=== PATIENT | female | born 1970 | race Caucasian/White ===

== ENCOUNTER 2016-09-19 09:10 | Emergency (ER) | payer BC ==
[~2016-09-19] VITALS: Ht 170.2 cm; Wt 77.3 kg
[2016-09-19 09:22] VITALS: Ht 170.2 cm; Wt 77.3 kg
[2016-09-19] MEDS ORDERED: OXYMETAZOLINE 0.05% 15 ML NAS SPRAY NASAL STA (09:26)
[2016-09-19] MEDS ORDERED: SOD CHLORIDE 0.9% 1,000 ML IV STA ×2 (09:26→10:22)
[2016-09-19] MEDS ORDERED: KETOROLAC 15 MG INJ IV STA (10:01)
[2016-09-19 10:04] LABS: BASOPHILS % 0.2 % (0.0-2.0); EOSINOPHILS # 0.1 10^3/ul (0.0-0.5); EOSINOPHILS % 1.8 % (0.0-7.0); HEMATOCRIT 42.4 % (37.0-47.0); HEMOGLOBIN 14.3 g/dl (12.0-16.0); LYMPHOCYTES # 0.7 10^3/ul (0.8-2.9); LYMPHOCYTES % 13.1 % (15.0-51.0); MEAN CORPUSCULAR HEMOGLOBIN 28.2 pg (29.0-33.0); MEAN CORPUSCULAR HGB CONC 33.7 g/dl (32.0-37.0); MEAN CORPUSCULAR VOLUME 83.7 fl (82.0-101.0); MONOCYTE # 0.3 10^3/ul (0.3-0.9); MONOCYTES % 5.5 % (0.0-11.0); NEUTROPHIL # 4.2 10^3/ul (1.6-7.5); NEUTROPHILS % 79.4 % (39.0-77.0); PLATELET COUNT 190 10^3/UL (140-440); RED BLOOD COUNT 5.07 10^6/ul (4.20-5.40); RED CELL DISTRIBUTION WIDTH 13.1 % (11.5-14.5); UNCORRECTED WBC 5.3 10^3/ul (4.8-10.8); WHITE BLOOD COUNT 5.3 10^3/ul (4.8-10.8)
[2016-09-19 10:11] LABS: CHLORIDE 105 mmol/L (97-110); CONDITION 1; POTASSIUM 4.3 mmol/L (3.5-5.1); SODIUM 144 mmol/L (135-144)
--- NOTE | 2016-09-19 10:11 | RADRPT ---
PROCEDURE: XR Chest. CLINICAL INDICATION: Chest pain TECHNIQUE: Single portable view of the chest was obtained COMPARISON: None FINDINGS: The heart and mediastinum are within normal limits. There is mild elevation of the right diaphragm. There are mild bibasilar atelectatic changes. The lungs are otherwise clear. There is no pleural effusion or pneumothorax. RPTAT: AA IMPRESSION: Mild bibasilar atelectatic changes. .Naveen Denton MD, MD Date Time Electronically viewed and signed by .Naveen Denton MD, on 09/19/2016 10:11 .S/
[2016-09-19 10:12] LABS: INR 0.92; PROTIME 12.4 Sec (12.2-14.2)
[2016-09-19 10:13] LABS: PARTIAL THROMBOPLASTIN TIME 29.7 Sec (25.0-35.0)
[2016-09-19 10:14] LABS: ANION GAP 15 (8-16); BLOOD UREA NITROGEN 8 mg/dl (7-20); CARBON DIOXIDE 28 mmol/L (21-31); CREATININE 0.65 mg/dl (0.44-1.00)
[2016-09-19 10:15] LABS: CALCIUM 9.3 mg/dl (8.4-10.2); GLUCOSE 90 mg/dl (70-220)
[2016-09-19 10:30] LABS: TROPONIN-I < 0.012 ng/ml (0.00-0.12)
--- NOTE | 2016-09-19 12:08 | ERD ---
ER Documentation Chief Complaint Date/Time DATE: 09/19/16 TIME: 12:05 Chief Complaint fever, cough, congestion, body aches x 4 days HPI This is a 46-year-old female presents to the emergency room for evaluation of fever, congestion, body aches for the past 4 days. The patient does state that she has had subjective fever at home yesterday. She has been taking Advil with some minor relief and came to the ER today for evaluation. Patient is denying any active chest pain or palpitations at this time but does state that she is feeling congested in the chest ROS All systems reviewed and are negative except as per history of present illness. Allergies Allergies: Coded Allergies: No Known Allergy (Unverified , 06/13/15) PMhx/Soc Medical and Surgical Hx: pt denies Medical Hx, pt denies Surgical Hx Hx Alcohol Use: No Hx Substance Use: No Hx Tobacco Use: No Smoking Status: Never smoker Physical Exam Vitals Vital Signs Date Time Temp Pulse Resp B/P Pulse Ox O2 Delivery O2 Flow Rate FiO2 09/19/16 11:30 99.1 80 18 120/84 99 Room Air 09/19/16 09:22 98.2 101 18 133/84 100 Physical Exam Const: No acute distress Head: Atraumatic Eyes: Normal Conjunctiva ENT: Bilateral nasal congestion, pharyngeal erythema, no visible exudate, normal External Ears, Nose and Mouth. Neck: Full range of motion..~ No meningismus. Resp: Clear to auscultation bilaterally Cardio: Regular rate and rhythm, no murmurs Abd: Soft, non tender, non distended. Normal bowel sounds Skin: No petechiae or rashes Back: No midline or flank tenderness Ext: No cyanosis, or edema Neur: Awake and alert Psych: Normal Mood and Affect Result Diagram: 09/19/16 0950 09/19/16 0950 Results 24 hrs Laboratory Tests Test 09/19/16 09:50 Activated Partial Thromboplast Time 29.7Sec Anion Gap 15 Basophils # 0.010^3/ul Basophils % 0.2% Blood Morphology Comment Blood Urea Nitrogen 8mg/dl Calcium Level 9.3mg/dl Carbon Dioxide Level 28mmol/L Chloride Level 105mmol/L Creatinine 0.65mg/dl Eosinophils # 0.110^3/ul Eosinophils % 1.8% Glucose Level 90mg/dl Hematocrit 42.4% Hemoglobin 14.3g/dl INR International Normalized Ratio 0.92 Lymphocytes # 0.710^3/ul Lymphocytes % 13.1% Mean Corpuscular Hemoglobin 28.2pg Mean Corpuscular Hemoglobin Concent 33.7g/dl Mean Corpuscular Volume 83.7fl Mean Platelet Volume 9.0fl Monocytes # 0.310^3/ul Monocytes % 5.5% Neutrophils # 4.210^3/ul Neutrophils % 79.4% Nucleated Red Blood Cells # 0.010^3/ul Nucleated Red Blood Cells % 0.0/100WBC Platelet Count 59286^3/UL Potassium Level 4.3mmol/L Prothrombin Time 12.4Sec Prothrombin Time Ratio 1.0 Red Blood Count 5.0710^6/ul Red Cell Distribution Width 13.1% Sodium Level 144mmol/L Troponin I < 0.012ng/ml White Blood Count 5.310^3/ul Current Medications Medications (Trade) Dose Ordered Sig/Saman Route PRN Reason Start Time Stop Time Status Last Admin Dose Admin Sodium Chloride (NS) 1,000 ml @ 1,000 mls/hr Q1H STAT IV 09/19/16 09:26 09/19/16 10:25 DC 09/19/16 09:54 Oxymetazoline HCl (Afrin [place]) 2 spray ONCE STAT NASAL 09/19/16 09:26 09/19/16 09:28 DC 09/19/16 09:54 Ketorolac Tromethamine 15 mg 15 mg ONCE STAT IV 09/19/16 10:01 09/19/16 10:02 DC 09/19/16 10:47 Sodium Chloride (NS) 1,000 ml @ 1,000 mls/hr Q1H STAT IV 09/19/16 10:22 09/19/16 11:21 DC 09/19/16 11:14 Procedures/MDM EKG: Rate/Rhythm: [Normal Sinus Rhythm] QRS, ST, T-waves: [No changes consistent w/ acute ischemia] Impression: [No evidence of ischemia or arrhythmia] Chest X-ray 1V Interpreted by me: Soft Tissue: No acute abnormalities Bones: No acute abnormalities Mediastinum/Cardiac Silhouette/Lungs: [No acute abnormalities] This 46-year-old female presents to the emergency room for evaluation of fever, cough and congestion. This patient had lab work drawn which was normal, EKG is nonischemic, troponin is normal, chest x-ray is also clear. She has not hypoxic , this patient was given 2 L of IV fluids, she was given Afrin, and Toradol. When I reevaluated her the patient states she is feeling better at this time. She is in no acute distress, and is hemodynamically stable at this time for discharge. I do feel her symptoms are viral in nature. This patient will be discharged at this time with instructions to stay hydrated. Departure Diagnosis: Primary Impression: Influenza-like symptoms Condition: Stable FARHAD SINGER DO Sep 19, 2016 12:08
[2016-09-19] MEDS ORDERED: OXYM15SP34 NASAL (12:09)
[2016-09-19 12:50] LABS: URINE BLOOD (Dip) POC Negative (NEGATIVE)
[2016-09-19 13:26] VITALS: BP 120/83; PULSE 81; RESP 18; TEMP 98.5
== END 2016-09-19 13:27 | disposition home or self-care (01) ==
LOC: E/R 09:10
DX: R09.89 Other specified symptoms and signs involving the circulatory and respiratory systems (principal); R05 Cough; R50.9 Fever, unspecified; R07.9 Chest pain, unspecified
CPT/HCPCS: 36415; 71010; 80048; 81003; 84484; 85025; 85610; 85730; 93005; 96374; 99285; J1885; J7030

== ENCOUNTER 2018-04-21 13:16 | Emergency (ER) | END 2018-04-21 13:45 | disposition home or self-care (01) ==

== ENCOUNTER 2018-06-28 11:48 | Emergency (ER) | END 2018-06-28 14:53 | disposition home or self-care (01) ==